=== PATIENT | male | born 1985 ===

== ENCOUNTER 2022-10-10 09:00 | Outpatient (RCR) | payer OTHER, SELFPAY | END 2022-10-10 11:10 | disposition home or self-care (01) | PROVIDERS: Visit Provider Physician Assistant Surgical | DX: Z98.890 Other specified postprocedural states (principal); Z51.89 Encounter for other specified aftercare | CPT/HCPCS: 97110; 97116; 97140; 97161 ==

== ENCOUNTER 2023-08-10 07:41 | Outpatient (CLI) | payer OTHER, SELFPAY | END 2023-08-10 07:42 | disposition home or self-care (01) | PROVIDERS: PCP Family Medicine; Visit Provider Family Medicine | DX: Z00.00 Encounter for general adult medical examination without abnormal findings (principal); E78.00 Pure hypercholesterolemia, unspecified; F32.A Depression, unspecified; Z13.1 Encounter for screening for diabetes mellitus; Z13.21 Encounter for screening for nutritional disorder; F41.9 Anxiety disorder, unspecified; F90.9 Attention-deficit hyperactivity disorder, unspecified type; R53.83 Other fatigue; E78.1 Pure hyperglyceridemia; G47.10 Hypersomnia, unspecified; E55.9 Vitamin D deficiency, unspecified | CPT/HCPCS: 80061; 82306; 82947 ==

== ENCOUNTER 2024-06-13 09:00 | Outpatient (CLI) | payer BC, SELFPAY ==
--- OUTSIDE RECORDS SUMMARY | 2024-06-16 04:58 | XMS_ITS | Clinical Summary ---
Author Organization [facility] Address [place], [place] [address] Care Team Providers Care Can Filling Room Sweeper Name Role Phone Votel, Ned Grace MD Primary Care Provider + Allergies No known active allergies Medications Medication Sig Dispensed Refills Start Date End Date Status cholecalciferol (VITAMIN D3) 2,000 unit capsule Take 2,000 units by mouth once daily. 08/10/2023 Active methylphenidate (Concerta) 54 mg extended-release tabletIndications:A ttention deficit hyperactivity disorder (ADHD), predominantly inattentive type Take 1 Tablet (54 mg) by mouth once daily. 30 Tablet 06/12/2024 07/12/2024 Active methylphenidate (Concerta) 54 mg extended-release tabletIndications:A ttention deficit hyperactivity disorder (ADHD), predominantly inattentive type Take 1 Tablet (54 mg) by mouth once daily. 30 Tablet 07/12/2024 08/11/2024 Active methylphenidate (Concerta) 54 mg extended-release tabletIndications:A ttention deficit hyperactivity disorder (ADHD), predominantly inattentive type Take 1 Tablet (54 mg) by mouth once daily. 30 Tablet 08/11/2024 Active lamoTRIgine 200 mg tabletIndications:D epression, unspecified depression type Take 1 Tablet (200 mg) by mouth once daily. 30 Tablet 1 06/12/2024 Active sertraline (ZOLOFT) 50 mg tabletIndications:D epression, unspecified depression type Take 1 Tablet (50 mg) by mouth once daily. 30 Tablet 1 06/12/2024 Active methylphenidate (Concerta) 36 mg extended-release tabletIndications:A ttention deficit hyperactivity disorder (ADHD), predominantly inattentive type Take 1 Tablet (36 mg) by mouth once daily. 30 Tablet 04/30/2024 05/30/2024 methylphenidate (Concerta) 36 mg extended-release tabletIndications:A ttention deficit hyperactivity disorder (ADHD), predominantly inattentive type Take 1 Tablet (36 mg) by mouth once daily. 30 Tablet 05/30/2024 06/12/2024 Discontinued( *Medication adjustment) methylphenidate (Concerta) 36 mg extended-release tabletIndications:A ttention deficit hyperactivity disorder (ADHD), predominantly inattentive type Take 1 Tablet (36 mg) by mouth once daily. 30 Tablet 06/29/2024 06/12/2024 Discontinued( *Medication adjustment) lamoTRIgine (LAMICTAL) 200 mg tabletIndications:D epression, unspecified depression type Take 1 Tablet (200 mg) by mouth once daily. 30 Tablet 1 04/30/2024 06/12/2024 Discontinued( Reorder (E-cancel not sent)) sertraline (ZOLOFT) 50 mg tabletIndications:D epression, unspecified depression type Take 1 Tablet (50 mg) by mouth once daily. 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 Anxiety 12/12/2023 Depression 12/12/2023 Resolved Problems Problem Noted Date Diagnosed Date Resolved Date Bipolar depression 12/12/2023 Encounters Date Type Department Care Team Description 06/13/2024 3:30 PM CDT Office Visit [facility] [address] [place] [address] Paola Jaime PsyD, LP Arrived 06/12/2024 8:45 AM CDT Office Visit [facility] [address] [place] [address] Ning Martinez NP Follow Up; Medication Management (feeling, Good) 06/12/2024 Travel 04/30/2024 8:45 AM CDT Office Visit [facility] [address] [place] [address] Ning Martinez NP Follow Up; Medication Management 04/30/2024 Travel 04/02/2024 8:45 AM CDT Office Visit [facility] [address] [place] [address] Ning Martinez NP Medication Management (Things are good, nothing new, had a great weekend) 04/02/2024 Telephone [facility] [address] [place] [facility] [address] Ning Martinez NP NIA (/[employer] Sight results) 04/02/2024 Travel 03/27/2024 9:45 AM CDT Office Visit [facility] [address] [address] Ning Martinez NP Medication Management (Things are going all right) 03/27/2024 Travel from Last 3 Months Immunizations Name Administration Dates Next Due COVID-19 Vaccine Spikevax (M oderna 50mcg/0.5mL) 12YO+ 2255-7423 Formula PF 10/10/2023 Influenza, IIV4 10/10/2023,11/12/2021,02/02/2021 Tdap 03/30/2022 Family History Medical History Relation Name Comments Diabetes Father Good Health Mother Diabetes Paternal Grandfather Relation Name Status Comments Father Alive Mother Alive Paternal Grandfather Social History Tobacco Use Types Packs/Day Years Used Date Smoking Tobacco: Never Smokeless Tobacco: Never Tobacco Cessation:Counseling Given: Not Answered Comments:light smoker during college Alcohol Use Standard Drinks/Week Comments Not Currently 0 (1 standard drink = 0.6 oz pur e alcohol) PHQ-2 Answer Date Recorded PHQ-2 TOTAL SCORE 2 06/12/2024 Social Connections Answer Date Recorded Frequency of Communication with Friends and Fami ly Not on file 03/30/2022 Education Answer Date Recorded What is the highest level of school you have completed or the highest degree you have received? Master's degree (e.g., MA, MS, Prosper, MEd, FIELD FOREMAN, KARTIK) 03/30/2022 Sex and Gender Information Value Date Recorded Sex Assigned at Not on file Gender Identity Not on file Sexual Orientation Not on file Obstetrics History Last Filed Vital Signs Vital Sign Reading Time Taken Comments Blood Pressure 116/72 06/12/2024 8:58 AM CDT Pulse 69 06/12/2024 8:58 AM CDT Temperature 37.1 ??C (98.8 ??F) 08/02/2022 4:44 PM CD T Respiratory Rate 18 08/02/2022 4:44 PM CDT Oxygen Saturation 98% 08/02/2022 4:44 PM CDT Inhaled Oxygen Concentration - - Weight 87.4 kg (192 lb 11.2 oz) 06/12/2024 8:58 AM CDT Height 182.9 cm (6') 11/28/2022 8:53 AM MIXING 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 Body Mass Index 26.13 11/28/2022 8:53 AM MIXING 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 Plan of Treatment Upcoming Encounters Date Type Department Care Team (Late st Contact Info) Description 07/09/2024 10:15 AM CDT Office Visit [facility] [address] [place] [address] Ning Martinez NP [address] [place] [address] Health Maintenance Due Date Last Done Comments HIV for age 15-65 1999 Hepatitis C screening for age 18-79 2002 BMI (ht and wt on same day) for age 18+ 11/28/2023 11/28/2022, 03/30/2022 Influenza for age 9-49 07/28/2024 , 11/12/2021, 02/02/2021 Depression screening for age 12+ 06/13/2025 06/13/2024, 06/12/2024, 04/30/2024, Additional history exists Lipids for age 35-44 03/30/2027 03/30/2022 Tetanus booster 03/30/2032 03/30/2022 Tdap Completed 03/30/2022 COVID-19 vaccine series Completed 10/10/20 23, 11/12/2021, 03/22/2021, Additional history exists Pneumococcal series for age 6-64 Aged Out No longer eligible based on patient's age to complete this topic Procedures Procedure Name Priority Date/Time Associated Diagnosis Comments COMPLIANCE DRUG ANALYSIS Patient wait 04/02/2024 9:34 AM CDT Attention deficit hyperactivity disorder (ADHD), predominantly inattentive type LIPID PANEL W REFLEX MEASURED LDL Routine 03/30/2022 2:34 PM CDT Lipid screening from Last 3 Months or Most Recently Relevant to Health Maintenance Results * COMPLIANCE DRUG ANALYSIS (04/02/2024 9:34 AM CDT) 6-MONOACETYL MORPHINE NEG NEG ng/mL 04/05/2024 11:54 AM [facility] AMPHETAMINE URINE NEG <=500 ng/mL 04/05/2024 11:54 AM [facility] BARBITURATE URINE NEG <=200 ng/mL 04/05/2024 11:54 AM [facility] BENZODIAZEPINE URINE NEG <=100 ng/mL 04/05/2024 11:54 AM [facility] BUPRENORPHRINE URINE NEG <=5 ng/mL 03/27 11:54 AM [facility] COCAINE METAB URINE NEG <=300 ng/mL 04/05/2024 11:54 AM [facility] ETHYLGLUCURONIDE URINE NEG <=250 ng/mL 04/05/2024 11:54 AM [facility] FENTANYL URINE NEG <=4 ng/mL 04/05/2024 11:54 AM [facility] METHADONE URINE NEG <=300 ng/mL 04/05/2024 11:54 AM [facility] OPIATES URINE NEG <=300 ng/mL 04/05/2024 11:54 AM [facility] OXYCODONE URINE NEG <=100 ng/mL 04/05/2024 11:54 AM [facility] PROPOXYPHENE URINE NEG <=300 ng/mL 04/05/2024 11:54 AM [facility] THC 50 URINE NEG <=50 ng/mL 04/05/2024 11:54 AM [facility] TRAMADOL NEG <=200 ng/mL 04/05/2024 11:54 AM [facility] PH URINE 6.7 5.0 - 7.0 04/05/2024 11:54 AM CDT [facility] CREAT UR 170 >=20 mg/dL 04/05/2024 11:54 AM T [facility] MASS SPECTROMETRY URINE See Below 04/05/2024 11:54 AM CDT [facility] Comment:Lamotrigine present. Urine URINE SPECIMEN / Unknown Non-Blood / Unknown 04/02/2024 9:34 AM CDT 04/02/2024 9:34 AM CDT [facility] - 04/05/2024 11:54 AM CDT Current Outpatient Medications: cholecalciferol (VITAMIN D3) 2,000 unit capsule, Take 2,000 units by mouth once daily. lamoTRIgine (LAMICTAL) 200 mg tablet, Take 1 Tablet (200 mg) by mouth once daily. sertraline (ZOLOFT) 50 mg tablet, Take 1 Tablet (50 mg) by mouth once daily. No current facility-administered medications for this visit. As of 04/02/2024 Release to patient->Immediate Ning Martinez NP URINE [facility] [address] [facility] [address] [place] [address], * (ABNORMAL) LIPID PANEL W REFLEX MEASURED LDL (03/30/2022 2:34 PM CDT) CHOLESTEROL,TOTAL 231(H) 100 - 199 mg/dL 03/30/2022 10:46 PM CDT [facility] [employer] [facility] TRAL LABORAT[facility] TRIGLYCERIDES 309(H) <150 mg/dL 03/30/2022 10:46 PM CDT [facility] HDL CHOLESTEROL 45 >40 mg/dL 10:46 PM CDT [facility] NON-HDL CHOLESTEROL 186(H) <145 mg/dl 03/30/2022 10:46 PM CDT [facility] CHOL/HDL RATIO 5.13(H) <4.50 03/30/2022 10:46 PM CDT [facility] LDL CHOLESTEROL 124 <=130 mg/dL 03/30/2022 10:46 PM CDT [facility] VLDL CHOLESTEROL 62(H) <=30 mg/dL 03/30/2022 10:46 PM CDT [facility] TRAL LABORATORY PROVIDER ORDERED STATUS RANDOM 03/30/2022 10:46 PM CDT [facility] TR[facility] Blood BLOOD SPECIMEN / Unknown Venipuncture / Unknown 03/30/2022 2:34 PM CDT 03/30/2022 2:34 PM CDT Ned Valencia MD [facility] [address] [place] [address], from Last 3 Months or Most Recently Relevant to Health Maintenance Care Teams Can Filling Room Sweeper Relationship Specialty Start Date End Date SebastientelNed MD [address] [place] [address] PCP - General Family Practice 03/30/22
== END 2024-06-13 09:01 | disposition home or self-care (01) ==
LOC: NFLDREF 06-16 04:56
PROVIDERS: PCP Family Medicine; Referring Provider Family Medicine; Visit Provider Family Medicine
DX: E78.5 Hyperlipidemia, unspecified (principal); Z13.1 Encounter for screening for diabetes mellitus
CPT/HCPCS: 80061; 82565; 82947; 84520

== ENCOUNTER 2024-07-15 19:32 | Outpatient (CLI) | payer BC, SELFPAY ==
--- OUTSIDE RECORDS SUMMARY | 2024-07-15 19:34 | XMS_ITS | Clinical Summary ---
Author Organization [facility] Address [place], [place] [address] Care Team Providers Care Financial Services Agent Name Role Phone Miguel Ángel Chapman MD Primary Care Provider [phone] Allergies No known active allergies Medications Medication [...] mg) by mouth once daily. 30 Tablet 3 07/10/2024 Active sertraline (ZOLOFT) 50 mg tabletIndications:D epression, unspecified depression type Take 1 Tablet (50 mg) by mouth once daily. 30 Tablet 3 07/10/2024 Active methylphenidate (Concerta) 54 mg extended-release tabletIndications:A ttention deficit hyperactivity disorder (ADHD), predominantly inattentive type Take 1 Tablet (54 mg) by mouth once daily. 30 Tablet 09/10/2024 10/10/2024 Active methylphenidate (Concerta) 54 mg extended-release tabletIndications:A ttention deficit hyperactivity disorder (ADHD), predominantly inattentive type Take 1 Tablet (54 mg) by mouth once daily. 30 Tablet 06/12/2024 07/12/2024 lamoTRIgine 200 mg tabletIndications:D epression, unspecified depression type Take 1 Tablet (200 mg) by mouth once daily. 30 Tablet 1 06/12/2024 07/10/2024 Discontinued( Reorder (E-cancel not sent)) sertraline (ZOLOFT) 50 mg tabletIndications:D epression, unspecified depression type Take 1 Tablet (50 mg) by mouth once daily. 30 Tablet 1 06/12/2024 07/10/2024 Discontinued( Reorder (E-cancel not sent)) Active Problems Problem Noted Date Diagnosed Date Attention deficit hyperactiv ity disorder (ADHD), predominantly inattentive type 03/27/2024 Anxiety 12/12/2023 Depression 12/12/2023 Resolved Problems Problem Noted Date Diagnosed Date Resolved Date Bipolar depression 12/12/2023 Encounters Date Type Department Care Team Description 07/09/2024 10:15 AM CDT Office Visit [facility] [address] [place] [address] Ning Martinez NP Medication Management (Things are going good) 07/09/2024 Travel 06/13/2024 3:30 PM CDT Office Visit [facility] [address] [place] [address] Paola Jaime PsyD, LP Psychological Testing (ASD Evaluation Intake); Mental Health Intake 06/12/2024 8:45 AM CDT Office Visit [facility] [address] [place] [address] Ning Martinez NP Follow Up; Medication Management (feeling, Good) 06/12/2024 Travel 04/30/2024 8:45 AM CDT Office Visit [facility] [address] [place] [address] Ning Martinez NP Follow Up; Medication Management 04/30/2024 Travel from Last 3 Months Immunizations Name Administration Dates Next Due COVID-19 Vaccine Spikevax (M oderna 50mcg/0.5mL) 12YO+ 7344-3601 Formula PF 10/10/2023 Influenza, IIV4 10/10/2023,11/12/2021,02/02/2021 Tdap [...] PHQ-2 Answer Date Recorded PHQ-2 TOTAL SCORE 0 07/09/2024 Social Connections Answer Date Recorded Frequency of Communication with Friends and Fami ly Not on file 03/30/2022 Education Answer Date Recorded What is the highest level of school you have completed or the highest degree you have received? Master's degree (e.g., MA, MS, Prosper, MEd, CLOTH WINDER, KARTIK) 03/30/2022 Sex and Gender Information Value Date Recorded Sex Assigned at Not on file Gender Identity Not on file Sexual Orientation Not on file Obstetrics History Last Filed Vital Signs Vital Sign Reading Time Taken Comments Blood Pressure 114/84 07/09/2024 10:28 AM CDT Pulse 64 07/09/2024 10:28 AM CDT Temperature 37.1 ??C (98.8 ??F) 08/02/2022 4:44 PM CD T Respiratory Rate 18 08/02/2022 4:44 PM CDT Oxygen Saturation 98% 08/02/2022 4:44 PM CDT Inhaled Oxygen Concentration - - Weight 85.5 kg (188 lb 9.6 oz) 07/09/2024 10:28 AM CDT Height 182.9 cm (6') 11/28/2022 8:53 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 Body Mass Index 25.58 11/28/2022 8:53 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 Plan of Treatment Upcoming Encounters Date Type Department Care Team (Late st Contact Info) Description 07/17/2024 3:45 PM CDT Office Visit [facility] [address] [place] [id number] Paola Jaime, Parul, LP [address] [place] [address] 10/14/2024 8:45 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 [facility] [address] [facility] [address] Ning Martinez NP [address] [place] [address] Health Maintenance Due Date Last Done Comments HIV for age 15-65 1999 Hepatitis C screening for age 18-79 2002 BMI (ht and wt on same day) for age 18+ 11/28/2023 11/28/2022, 03/30/2022 Influenza for age 9-49 07/28/2024 , 11/12/2021, 02/02/2021 Depression screening for age 12+ 07/09/2025 07/09/2024, 06/13/2024, 06/12/2024, Additional history exists Lipids for age 35-44 03/30/2027 03/30/2022 Tetanus booster 03/30/2032 03/30/2022 Tdap Completed 03/30/2022 COVID-19 vaccine series Completed 10/10/20 23, 11/12/2021, 03/22/2021, Additional history exists Pneumococcal series for age 6-64 Aged Out No longer eligible based on patient's age to complete this topic Procedures Procedure Name Priority Date/Time Associated Diagnosis Comments LIPID PANEL W REFLEX MEASURED LDL Routine 03/30/2022 2:34 PM CDT Lipid screening from Last 3 Months or Most Recently Relevant to Health Maintenance Results * (ABNORMAL) LIPID PANEL W REFLEX MEASURED LDL (03/30/2022 2:34 PM CDT) CHOLESTEROL,TOTAL 231(H) 100 - 199 mg/dL 03/30/2022 10:46 PM CDT [facility] TRIGLYCERIDES 309(H) <150 mg/dL 03/30/2022 10:46 PM CDT [facility] HDL CHOLESTEROL 45 >40 mg/dL 10:46 PM CDT [facility] TRAL LABORATORY NON-HDL CHOLESTEROL 186(H) <145 mg/dl 03/30/2022 10:46 PM CDT [facility] TR[facility] LABORATORY CHOL/HDL RATIO 5.13(H) <4.50 03/30/2022 10:46 PM CDT [facility] TR[facility] LAB[facility]AT[facility] LDL CHOLESTEROL 124 <=130 mg/dL 03/30/2022 10:46 PM CDT [facility] TRAL LABORATORY VLDL CHOLESTEROL 62(H) <=30 mg/dL 03/30/2022 10:46 PM CDT [facility] TRAL LABORATORY PROVIDER ORDERED STATUS RANDOM 03/30/2022 10:46 PM CDT [facility] TRAL LABORATORY Blood BLOOD SPECIMEN / Unknown Venipuncture / Unknown 03/30/2022 2:34 PM CDT 03/30/2022 2:34 PM CDT Ned Valencia MD [facility] [address] [place] [address], from Last 3 Months or Most Recently Relevant to Health Maintenance Care Teams Financial Services Agent Relationship Specialty Start Date End Date Miguel Ángel Chapman MD [address] [place] [id number] PCP - General Family Practice 07/09/24
--- NOTE | 2024-07-30 10:36 | W.PM.SLEEP ---
Sleep Study Details Details Interpreting Provider: Ori Date of Sleep Study: 07/15/24 Sleep Study Details: STUDY TYPE:? Home unattended ? BMI:? 26 ORDERING PROVIDER:Teetee Rehman INDICATION:? Concern about sleep apnea ? SLEEP SUMMARY:? 470 minutes monitor time RESPIRATORY SUMMARY:? AHI 5.9, supine 12.5, left lateral 5.4, prone 2.7, right lateral 3.3 Low oxygen 84 0.5% of study oxygen below 90% Snoring 80.2% PERIODIC LIMB MOVEMENTS OF SLEEP:? Not record CARDIAC:? Range 58-102, mean 68.7 IMPRESSION:? Mild obstructive sleep apnea with supine position dependency RECOMMENDATION: Treatment options include CPAP, dental appliance and/or airway expansion surgery
== END 2024-07-15 19:33 | disposition home or self-care (01) ==
LOC: SLEEP 19:32
PROVIDERS: PCP Family Medicine; Visit Provider Otolaryngology
DX: G47.33 Obstructive sleep apnea (adult) (pediatric) (principal)
CPT/HCPCS: 95806

== ENCOUNTER 2024-12-02 13:07 | Outpatient (CLI) | payer BC, SELFPAY | END 2024-12-02 13:08 | disposition home or self-care (01) | LOC: US 13:08 | PROVIDERS: PCP Family Medicine; Visit Provider Surgery | DX: I83.813 Varicose veins of bilateral lower extremities with pain (principal) | CPT/HCPCS: 93970 ==

== ENCOUNTER 2025-03-31 14:34 | Outpatient (CLI) | payer BC, SELFPAY | END 2025-03-31 14:35 | disposition home or self-care (01) | LOC: US 14:35 | PROVIDERS: PCP Family Medicine; Visit Provider Surgery | DX: I83.813 Varicose veins of bilateral lower extremities with pain (principal); I87.2 Venous insufficiency (chronic) (peripheral); I86.8 Varicose veins of other specified sites | CPT/HCPCS: 93970 ==

== ENCOUNTER 2025-06-12 09:06 | Outpatient (CLI) | payer BC, SELFPAY ==
--- NOTE | 2025-06-12 09:15 | MR_ITS ---
[address] [address] Phone:?[phone] Fax:?[phone] Referring Physician Information: Sonia Sal [address] [facility] [address] Phone:?[phone] Fax:?[phone] Patient:Yuliana Lyons D.O.B:?1985 Sex:?Male Phone:?[phone] [facility] MRN:?[id number] Exam Date:?06/12/2025 EXAM: MR PROSTATE WITHOUT AND WITH CONTRAST CLINICAL INFORMATION: Hematospermia. COMPARISON: None. TECHNICAL INFORMATION: Examination was performed on a 1.5T magnet. High- resolution T1 axial, T2 axial, T2 FSE sagittal and T2 FSE coronal images were obtained through the prostate gland and seminal vesicles. Diffusion images were obtained in the axial plane. 20 mL of Dotarem were injected with dynamic enhanced images of the prostate gland in the axial plane. T1 fat saturation sagittal and coronal images were obtained postinjection. Images were analyzed with 3-D postprocessing online under concurrent physician supervision using a separate AdoTube workstation. Amount of IV contrast discarded is 0 mL. INTERPRETATION: The prostate gland measures 4.0 x 3.4 x 4.4 cm (TV x AP x SI) for an estimated volume of 26 cc. Transitional and central zones: There is minimal glandular and stromal hyperplasia with well encapsulated BPH nodules (PI-RADS 2). No focal CZ/TZ lesions concerning for clinically significant adenocarcinoma. Peripheral zones: No focal PZ lesions concerning for clinically significant adenocarcinoma (PI-RADS 1). Pelvis: No fercho transcapsular disease. Neurovascular bundles and seminal vesicles appear intact. No pelvic lymphadenopathy or evident bone marrow disease. CONCLUSION: * Nonenlarged prostate gland with minimal BPH. * No stigmata of prostatitis. * No suspicious (PI-RADS 3, 4, or 5) lesions identified. * No definite explanation for the patient's hematospermia. PI-RADS Assessment Categories: Score 1 = very low; clinically significant disease highly unlikely Score 2 = low; clinically significant disease is unlikely Score 3 = intermediate; clinically significant disease is equivocal Score 4 = high; clinically significant disease is likely Score 5 = very high; clinically significant disease is highly likely Electronically signed on 06/12/2025 4:03:00 PM by Steven Mora M.D.
--- NOTE | 2025-06-12 10:45 | CRLHL7_ITS ---
For Patients: As a result of the Century Cures Act, medical imaging exams and procedure reports are released immediately into your electronic medical record. You may view this report before your referring provider. If you have questions, please contact your health care provider. CLINICAL HISTORY: Microscopic hematuria COMPARISON: none TECHNIQUE: Samano scale and color Doppler images were acquired of the kidneys and urinary bladder. FINDINGS: Sonographic images reveal a symmetric appearance of the kidneys. There is no evidence of hydronephrosis, mass or calculus. The right kidney measures 11.5cm in length and the left kidney measures 11.6cm in length. The renal cortex appears of normal thickness. The urinary bladder appears normal. Color Doppler images reveal a normal appearance of both ureteral jets. There is no evidence of bladder calculi or diverticula. Bladder volume 23 cc. Postvoid bladder volume 5 cc. IMPRESSION: Normal renal ultrasound. Dictated by Haseeb Rodriguez MD @ 06/12/2025 11:44:06 AM (Electronically Signed)
== END 2025-06-12 09:07 | disposition home or self-care (01) ==
LOC: MRI 09:07
PROVIDERS: PCP Family Medicine; Visit Provider Physician Assistant Surgical
DX: R36.1 Hematospermia (principal); R31.29 Other microscopic hematuria
CPT/HCPCS: 72197; 76770; A9575

== ENCOUNTER 2025-06-24 08:03 | Outpatient (CLI) | payer BC, SELFPAY | END 2025-06-24 08:04 | disposition home or self-care (01) | LOC: NFLDREF 06-26 10:24 | PROVIDERS: PCP Family Medicine; Referring Provider Family Medicine; Visit Provider Family Medicine | DX: E78.5 Hyperlipidemia, unspecified (principal); R79.89 Other specified abnormal findings of blood chemistry; L64.9 Androgenic alopecia, unspecified; R53.83 Other fatigue | CPT/HCPCS: 80053; 80061; 82306; 84443 ==

== ENCOUNTER 2025-06-30 15:48 | Emergency (ER) | payer BC, SELFPAY ==
[2025-06-30 15:51] VITALS: BP 110/76; PULSE 117; RESP 16; TEMP 36; O2SAT 97; BMI 25.8
--- OUTSIDE RECORDS SUMMARY | 2025-06-30 15:51 | XMS_ITS | Clinical Summary ---
Author Organization [facility] Address [address] [place] [id number] Care Team Providers Care Professional Services Manager Name Role Phone Miguel Ángel Chapman MD Primary Care Provider [phone] Allergies No known active allergies Medications cholecalciferol (VITAMIN D3) 2,000 unit capsule Take 2,000 units by mouth once daily. 3 Active minoxidiL (LONITEN) 2.5 mg tab Take 2.5 mg by mouth once daily. 4 Active trimethoprim-sulf amethoxazole 160-800 mg tab Take 1 Tablet by mouth two times daily. 5 Active sertraline (ZOLOFT) 50 mg tabletIndications :Depression, unspecified depression type,Anxiety Take 1 Tablet (50 mg) by mouth once daily. 30 Tablet 3 5 Active lamoTRIgine 200 mg tabletIndications :Depression, unspecified depression type Take 1 Tablet (200 mg) by mouth once daily. 30 Tablet 1 5 Active sertraline 100 mg tabletIndications :Depression, unspecified depression type,Anxiety Take 1 Tablet (100 mg) by mouth once daily. 30 Tablet 2 5 06/11/20 25 Discontinu ed(*Medica tion adjustment ) lamoTRIgine 200 mg tabletIndications :Depression, unspecified depression type Take 1 Tablet (200 mg) by mouth once daily. 30 Tablet 2 5 06/11/20 25 Discontinu ed(Reorder (E-cancel not sent)) lisdexamfetamine (Vyvanse) 50 mg capsuleIndication s:Attention deficit hyperactivity disorder (ADHD), predominantly inattentive type Take 1 Capsule (50 mg) by mouth once daily. 30 Capsule 5 06/11/20 25 Discontinu ed(*Med ineffectiv e) lisdexamfetamine (Vyvanse) 50 mg capsuleIndication s:Attention deficit hyperactivity disorder (ADHD), predominantly inattentive type Take 1 Capsule (50 mg) by mouth once daily. 30 Capsule 5 06/11/20 25 Discontinu ed(*Med ineffectiv e) lisdexamfetamine (Vyvanse) 50 mg capsuleIndication s:Attention deficit hyperactivity disorder (ADHD), predominantly inattentive type Take 1 Capsule (50 mg) by mouth once daily. 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 Anxiety 12/12/2023 Depression 12/12/2023 Resolved Problems Problem Noted Date Diagnosed Date Resolved Date Bipolar depression 12/12/2023 4 Encounters Date Type Department Care Team Description 06/11/2025 10:45 AM CDT Office Visit [facility] [address] [place] [address] Ning Martinez, KIRA Follow Up; Medication Management 06/11/2025 Travel 05/12/2025 8:45 AM CDT Office Visit [facility] [address] [place] [address] Ning Martinez, KIRA Follow Up; Medication Management 05/12/2025 Travel 03/31/2025 2:30 PM CDT Orders Only [facility] [address] [place] [address] 3 scans: (3-Ord) US VENOUS INSUFFICIENCY LOWER EXTREMITY BILATERAL ([id number]) 03/31/2025 Travel from Last 3 Months Immunizations Immunization Administration Dates Next Due COVID-19 VACCINE SPIKEVAX (M ODERNA 50MCG/0.5ML) 12YO+ PFS 10/10/2023 Influenza, IIV4 10/10/2023,11/12/2021,02/02/2021 Tdap 03/30/2022 Family [...] PHQ-2 Answer Date Recorded PHQ-2 TOTAL SCORE 1 06/11/2025 Social Connections Answer Date Recorded Frequency of Communication with Friends and Fami ly Not on file 03/30/2022 Education Answer Date Recorded What is the highest level of school you have completed or the highest degree you have received? 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 Not on file Not on file Obstetrics History Last Filed Vital Signs Vital Sign Reading Time Taken Comments Blood Pressure 125/75 06/11/2025 10:53 AM CDT Pulse 80 06/11/2025 10:53 AM CDT Temperature 37.1 C (98.8 F) 08/02/2022 4:44 PM CDT Respiratory Rate 18 08/02/2022 4:44 PM CDT Oxygen Saturation 98% 08/02/2022 4:44 PM CDT Inhaled Oxygen Concentration - - Weight 88 kg (194 lb) 06/11/2025 10:53 AM CDT Height 182.9 cm (6') 11/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 Body Mass Index 26.31 11/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 Plan of Treatment Upcoming Encounters Date Type Department Care Team (Late st Contact Info) Description 09/08/2025 9:15 AM CDT Office Visit [facility] [address] [place] [address] Ning Martinez NP [address] [place] [address] Health Maintenance Due Date Last Done Comments HIV for age 15-65 1999 Hepatitis C screening for age 18-79 2002 Hepatitis B series for 19+ (1 of 3 - 19+ 3-dose series) 2003 BMI (ht and wt on same day) for age 18+ 11/28/2023 11/28/2022, 03/30/2022 COVID-19 vaccine series ( season) 2024 10/10/2023, 11/12/2021, 03/22/2021, Additional history exists Influenza Vaccine (#1) 2025 , 11/12/2021, 02/02/2021 Depression screening for age 12+ 06/11/2026 06/11/2025, 05/12/2025, 03/04/2025, Additional history exists Lipids for age 35-44 03/30/2027 03/30/2022 Tetanus booster 03/30/2032 03/30/2022 Pneumococcal series for age 6-49 Aged Out No longer eligible based on patient's age to complete this topic Procedures Procedure Name Priority Date/Time Associated Diagnosis Comments US VENOUS INSUFFICIENCY LOWER EXTREMITY BILATERAL Routine 03/31/2025 5:40 PM CDT Varicose veins of both lower extremities with pain LIPID PANEL W REFLEX MEASURED LDL Routine 03/30/2022 2:34 PM CDT Lipid screening from Last 3 Months or Most Recently Relevant to Health Maintenance Results * US VENOUS INSUFFICIENCY LOWER EXTREMITY BILATERAL (03/31/2025 5:40 PM CDT) Anatomical Region Laterality Modality LEGS Ultrasound 03/31/2025 1:40 PM CDT Narrative 04/01/2025 9:54 AM CDT VASCULAR ULTRASOUND REPORT ISRAEL LYONS : 1985 Study Date: 03/31/2025 1:40:02 PM Age: 39 years Tech: THUY Gender: M Referring MD: DESTINY FERNANDEZ Site: [facility] Study performed: Duplex US venous insufficiency, (bilateral). Indication for study: LE pain/edema Study Quality: Good TECHNIQUE: Lower/upper extremity veins were examined with duplex ultrasound, color-flow and spectral Doppler per exam protocol. Vein compressibility by transducer pressure was used to evaluate presence/absence of DVT/SVT. Venous flow and competence was evaluated by flow augmentation maneuvers per exam protocol. Insufficiency studies were performed with the patient in upright position, with vein diameters measured in mm, and reflux. IMPRESSION: 1. No evidence of deep vein thrombosis in the right and left lower extremity. 2. Deep vein insufficiency noted in the right common femoral, profunda femoral, femoral and popliteal veins. 3. Deep vein insufficiency noted in the left common femoral and femoral veins. 4. Superficial venous insufficiency was noted in the right sapheno-femoral junction and greater saphenous vein at proximal thigh, mid thigh, knee, upper calf, mid calf and lower calf. 5. Superficial venous insufficiency was noted in the right sapheno-popliteal junction and small saphenous vein at proximal calf, mid calf and distal calf. 6. Superficial venous insufficiency was noted in the left sapheno-femoral junction and greater saphenous vein at knee, upper calf and lower calf. 7. Incompetent varicose and/or generator assembler veins as listed below. COMPARISON: Compared to prior study 12-02-2024, increased LE superficial venous reflux bilaterally. FINDINGS: Right Lower Extremity: No evidence of DVT. Varicose vein at medial distal thigh, 5.1 mm diameter, 0.5 sec reflux. Varicose vein at medial proximal calf , 3.4 mm diameter, 0.7 sec reflux. Left Lower Extremity: No evidence of DVT. Varicose vein at medial mid calf, 3.4 mm diameter, 6.1 sec reflux. MEASUREMENTS: + +--------+----+--------+------+ RIGHT Compress SVT Diameter Reflux (mm) (secs) + +--------+----+--------+------+ SFJ yes None 7.0 1.0 + +--------+----+--------+------+ GSV THIGH PRX yes None 5.5 2.3 + +--------+----+--------+------+ GSV THIGH MID yes None 4.8 0.9 + +--------+----+--------+------+ GSV THIGH DST yes None 3.1 0.0 + +--------+----+--------+------+ GSV KNEE yes None 5.2 1.2 + +--------+----+--------+------+ GSV CALF UPPER yes None 4.0 0.5 + +--------+----+--------+------+ GSV CALF MID yes None 4.3 0.8 + +--------+----+--------+------+ GSV CALF LOW yes None 3.0 0.6 + +--------+----+--------+------+ SSV KNEE/SPJ yes None 3.0 5.1 + +--------+----+--------+------+ SSV CALF PRX yes None 2.5 1.2 + +--------+----+--------+------+ SSV CALF MID yes None 3.3 3.6 + +--------+----+--------+------+ SSV CALF DST yes None 4.4 0.9 + +--------+----+--------+------+ + +--------+----+ +------+ LEFT Compress SVT Diameter (mm) Reflux (secs) + +--------+----+ +------+ SFJ yes None 9.3 0.6 + +--------+----+ +------+ GSV THIGH PRX yes None 5.8 0.0 + +--------+----+ +------+ GSV THIGH MID yes None 6.2 0.0 + +--------+----+ +------+ GSV THIGH DST yes None 5.4 0.0 + +--------+----+ +------+ GSV KNEE yes None 5.8 1.8 + +--------+----+ +------+ GSV CALF UPPER yes None 5.0 1.9 + +--------+----+ +------+ GSV CALF MID yes None 3.2 0.0 + +--------+----+ +------+ GSV CALF LOW yes None 2.9 0.7 + +--------+----+ +------+ SSV KNEE/SPJ yes None 3.2 0.0 + +--------+----+ +------+ SSV CALF PRX yes None 2.5 0.0 + +--------+----+ +------+ SSV CALF MID yes None 2.6 0.0 + +--------+----+ +------+ SSV CALF DST yes None 3.8 0.0 + +--------+----+ +------+ can't evaluate Varicose Veins + + + + RIGHT Location Diameter (mm) Reflux (secs) + + + + medial distal thigh 5.1 0.5 + + + + medial proximal calf 3.4 0.7 + + + + + + + + LEFT Location Diameter (mm) Reflux (secs) + + + + medial mid calf 3.4 6.1 + + + + DEEP SYSTEM +----+--------+-----+ +--------+----+ + RIGHT RIGHT RIGHT LEFT LEFT LEFT Compress DVT Reflux (secs) Compress DVT Reflux (secs) +----+--------+-----+ +--------+----+ + CFV yes None 1.4 yes None 1.1 +----+--------+-----+ +--------+----+ + PFV yes None 1.4 yes None 0.0 +----+--------+-----+ +--------+----+ + FV yes None 2.3 yes None 1.5 +----+--------+-----+ +--------+----+ + POPV yes None 2.4 yes None 0.0 +----+--------+-----+ +--------+----+ + can't evaluate Abram Arshad MD. Electronically signed on 04/01/2025 9:54:43 AM This study was performed and interpreted by a service accredited by the Intersocietal Accreditation Commission (IAC/Vascular), [email or web address] Report generated by [employer]. Final Procedure Note Abram Arshad MD - 04/01/2025 VASCULAR ULTRASOUND REPORT ISRAEL LYONS : 1985 Study Date: 03/31/2025 1:40:02 PM Age: 39 years Tech: THUY Gender: M Referring MD: DESTINY FERNANDEZ Site: [facility] Study performed: Duplex US venous insufficiency, (bilateral). Indication for study: LE pain/edema Study Quality: Good TECHNIQUE: Lower/upper extremity veins were examined with duplex ultrasound,color-flow and spectral Doppler per exam protocol. Vein compressibility bytransducer pressure was used to evaluate presence/absence of DVT/SVT.Venous flow and competence was evaluated by flow augmentation maneuversper exam protocol. Insufficiency studies were performed with the patientin upright position, with vein diameters measured in mm, and reflux. IMPRESSION: 1. No evidence of deep vein thrombosis in the right and left lowerextremity. 2. Deep vein insufficiency noted in the right common femoral, profundafemoral, femoral and popliteal veins. 3. Deep vein insufficiency noted in the left common femoral and femoralveins. 4. Superficial venous insufficiency was noted in the rightsapheno-femoral junction and greater saphenous vein at proximal thigh, midthigh, knee, upper calf, mid calf and lower calf. 5. Superficial venous insufficiency was noted in the rightsapheno-popliteal junction and small saphenous vein at proximal calf, midcalf and distal calf. 6. Superficial venous insufficiency was noted in the left sapheno- femoraljunction and greater saphenous vein at knee, upper calf and lower calf. 7. Incompetent varicose and/or generator assembler veins as listed below. COMPARISON: Compared to prior study 12-02-2024, increased LE superficial venous refluxbilaterally. FINDINGS: Right Lower Extremity: No evidence of DVT. Varicose vein at medial distal thigh, 5.1 mm diameter,0.5 sec reflux. Varicose vein at medial proximal calf , 3.4 mm diameter,0.7 sec reflux. Left Lower Extremity: No evidence of DVT. Varicose vein at medial mid calf, 3.4 mm diameter, 6.1sec reflux. MEASUREMENTS: + +--------+----+--------+------+ RIGHT Compress SVT Diameter Reflux (mm) (secs) + +--------+----+--------+------+ SFJ yes None 7.0 1.0 + +--------+----+--------+------+ GSV THIGH PRX yes None 5.5 2.3 + +--------+----+--------+------+ GSV THIGH MID yes None 4.8 0.9 + +--------+----+--------+------+ GSV THIGH DST yes None 3.1 0.0 + +--------+----+--------+------+ GSV KNEE yes None 5.2 1.2 + +--------+----+--------+------+ GSV CALF UPPER yes None 4.0 0.5 + +--------+----+--------+------+ GSV CALF MID yes None 4.3 0.8 + +--------+----+--------+------+ GSV CALF LOW yes None 3.0 0.6 + +--------+----+--------+------+ SSV KNEE/SPJ yes None 3.0 5.1 + +--------+----+--------+------+ SSV CALF PRX yes None 2.5 1.2 + +--------+----+--------+------+ SSV CALF MID yes None 3.3 3.6 + +--------+----+--------+------+ SSV CALF DST yes None 4.4 0.9 + +--------+----+--------+------+ + +--------+----+ +------+ LEFT Compress SVT Diameter (mm) Reflux (secs) + +--------+----+ +------+ SFJ yes None 9.3 0.6 + +--------+----+ +------+ GSV THIGH PRX yes None 5.8 0.0 + +--------+----+ +------+ GSV THIGH MID yes None 6.2 0.0 + +--------+----+ +------+ GSV THIGH DST yes None 5.4 0.0 + +--------+----+ +------+ GSV KNEE yes None 5.8 1.8 + +--------+----+ +------+ GSV CALF UPPER yes None 5.0 1.9 + +--------+----+ +------+ GSV CALF MID yes None 3.2 0.0 + +--------+----+ +------+ GSV CALF LOW yes None 2.9 0.7 + +--------+----+ +------+ SSV KNEE/SPJ yes None 3.2 0.0 + +--------+----+ +------+ SSV CALF PRX yes None 2.5 0.0 + +--------+----+ +------+ SSV CALF MID yes None 2.6 0.0 + +--------+----+ +------+ SSV CALF DST yes None 3.8 0.0 + +--------+----+ +------+ can't evaluate Varicose Veins + + + + RIGHT Location Diameter (mm) Reflux (secs) + + + + medial distal thigh 5.1 0.5 + + + + medial proximal calf 3.4 0.7 + + + + + + + + LEFT Location Diameter (mm) Reflux (secs) + + + + medial mid calf 3.4 6.1 + + + + DEEP SYSTEM +----+--------+-----+ +--------+----+ + RIGHT RIGHT RIGHT LEFT LEFT LEFT Compress DVT Reflux (secs) Compress DVT Reflux (secs) +----+--------+-----+ +--------+----+ + CFV yes None 1.4 yes None 1.1 +----+--------+-----+ +--------+----+ + PFV yes None 1.4 yes None 0.0 +----+--------+-----+ +--------+----+ + FV yes None 2.3 yes None 1.5 +----+--------+-----+ +--------+----+ + POPV yes None 2.4 yes None 0.0 +----+--------+-----+ +--------+----+ + can't evaluate Abram Arshad MD. Electronically signed on 04/01/2025 9:54:43 AM This study was performed and interpreted by a service accredited by theIntersocietal Accreditation Commission (IAC/Vascular),[email or web address] Report generated by [employer]. Final us Destiny Fernandez MD US Final Re sult * (ABNORMAL) LIPID PANEL W REFLEX MEASURED LDL (03/30/2022 2:34 PM CDT) CHOLESTEROL,TOTAL 231(H) 100 - 199 mg/dL 03/30/2022 10:46 PM CDT [facility] [employer] [facility] TRIGLYCERIDES 309(H) <150 mg/dL 03/30/2022 10:46 PM CDT [facility] HDL CHOLESTEROL 45 >40 mg/dL 10:46 PM CDT [facility] NON-HDL CHOLESTEROL 186(H) <145 mg/dl 03/30/2022 10:46 PM CDT [facility] CHOL/HDL RATIO 5.13(H) <4.50 03/30/2022 10:46 PM CDT [facility] LDL CHOLESTEROL 124 <=130 mg/dL 03/30/2022 10:46 PM CDT [facility] VLDL CHOLESTEROL 62(H) <=30 mg/dL 03/30/2022 10:46 PM CDT [facility] PROVIDER ORDERED STATUS RANDOM 03/30/2022 10:46 PM CDT [facility] Blood BLOOD SPECIMEN / Unknown Venipuncture / Unknown 03/30/2022 2:34 PM CDT 03/30/2022 2:34 PM CDT us Ned Valencia MD CHEMISTRY Final Re sult [facility] [address] [place] [address], [place] from Last 3 Months or Most Recently Relevant to Health Maintenance Insurance [employer] ATTN: [place] [address] [facility] Care Teams Professional Services Manager Relationship Specialty Start Date End Date Miguel Ángel Chapman MD [address] [place] [phone] PCP - General Family Practice 07/09/24
--- NOTE | 2025-06-30 17:35 | CRLHL7_ITS ---
For Patients: As a result of the Century Cures Act, medical imaging exams and procedure reports are released immediately into your electronic medical record. You may view this report before your referring provider. If you have questions, please contact your health care provider. INDICATION: Pain and swelling, not otherwise described. According to the technologist, the patient underwent bilateral ablation of the great saphenous veins on June 03 and June 04 with right calf vein stripping, not otherwise specified. Pain in the left lower extremity extends from the mid thigh to the proximal calf and is associated with erythema on inspection, according to the technologist. Pain in the right leg corresponds to the [id number] DVT described further below. COMPARISON: None available. TECHNIQUE: Static and compression grayscale and spectral (including color) Doppler ultrasound of the bilateral lower extremities. FINDINGS: RIGHT LOWER EXTREMITY: Deep veins: Noncompressible [id number] DVT involving 1 of 2 paired posterior tibial veins in the upper leg. According to the technologist, the patient`s pain localizes to this region. Otherwise, the imaged right common femoral, deep femoral, superficial femoral, popliteal, posterior tibial, and peroneal veins are patent and free of clot. Superficial veins: Thrombosed right great saphenous vein. Echogenic thrombus within the great saphenous vein is present at the saphenofemoral junction without extension into the common femoral vein. Extravascular findings: No significant incidental findings. LEFT LOWER EXTREMITY: Deep veins: The imaged left common femoral, deep femoral, superficial femoral, popliteal, posterior tibial, and peroneal veins are patent and free of clot. Superficial veins: Thrombosed left great saphenous vein. Clot within the ablated left great saphenous vein ends 2.0 cm from the saphenofemoral junction. Extravascular findings: No significant incidental findings. IMPRESSION: 1. RIGHT LOWER EXTREMITY: Noncompressible [id number] DVT involving 1 of 2 paired posterior tibial veins in the upper leg. According to the technologist, the patient`s pain localizes to this region. This finding was conveyed by the technologist to the ordering provider Dr. Hare. Thrombosed RIGHT great saphenous vein. Echogenic thrombus within the great saphenous vein is present at the saphenofemoral junction without extension into the common femoral vein. 2. LEFT LOWER EXTREMITY: No evidence of DVT in the left lower extremity. Thrombosed LEFT great saphenous vein. Clot within the ablated left great saphenous vein ends 2.0 cm from the saphenofemoral junction. Dictated by Ge Elise MD @ 06/30/2025 7:50:48 PM (Electronically Signed)
--- NOTE | 2025-06-30 17:39 | ED.GENADULT ---
HPI - General Adult General Chief complaint: Extremity Pain/Injury, Lower Stated complaint: Both legs swollen Time Seen by Provider: 06/30/25 17:25 Source: patient Mode of arrival: ambulatory Limitations: no limitations History of Present Illness HPI narrative: 40-year-old male presenting today with bilateral leg pain. Patient states that approximately 1 month ago he had bilateral vein stripping. He denies fevers, chills, shortness of breath or chest pain. He states that he noticed pain of the bilateral lower medial thighs about 3 days ago. He noticed the skin started to turn red And the area is very tender to touch. He complains of swelling in the area. patient denies any recent long distance traveling. Denies personal history of blood clots. States that his father had a stroke in his early 40s, unclear etiology. Patient denies tobacco use. Related Data Home Medications ?Medication ?Instructions ?Recorded ?Confirmed lamotrigine 200 mg tablet 200 mg PO QDAY 07/29/22 06/26/25 cholecalciferol (vitamin D3) 50 50 mcg PO QDAY 06/18/24 06/26/25 mcg (2,000 unit) capsule sertraline 50 mg tablet 150 mg PO QDAY 03/11/25 06/26/25 lisdexamfetamine 50 mg capsule 50 mg PO DAILY 04/24/25 06/26/25 Previous Rx's ?Medication ?Instructions ?Recorded finasteride 1 mg tablet 1 mg PO QDAY #90 tabs 06/26/25 apixaban 5 mg (74 tabs) tablets in See Rx Instructions PO .COMPLEX 06/30/25 a dose pack (Eliquis DVT-PE Treat #74 ea 30D Start) Allergies Allergy/AdvReac Type Severity Reaction Status Date / Time No Known Drug Allergies Allergy Verified 06/26/25 08:54 Review of Systems Status of ROS: Reports: 6 or more systems reviewed and unremarkable except as noted in History and below [facility] Medical History History of varicocele ?Z86.79 - Personal history of other diseases of the circulatory system (ICD-10) Depression ?F32.A - Depression, unspecified (ICD-10) Elevated cholesterol ?E78.00 - Pure hypercholesterolemia, unspecified (ICD-10) Surgical History Hx of tonsillectomy ?Z90.89 - Acquired absence of other organs (ICD-10) History of repair of anterior cruciate ligament of left knee ?Z98.890 - Other specified postprocedural states (ICD-10) History of arthroscopy of both knees ?Z98.890 - Other specified postprocedural states (ICD-10) Family History Father High blood pressure Diabetes Stroke Social History Narrative: Stays at home with children. Does not smoke. rare alcohol What is your current living situation?: I presently have a place to live Problems where you live: no known problems In the past 12 months, utilities in danger of being shut off: no In past 12 months, lack of transportation kept you from medical appts, meetings, work, or getting things needed for daily living: no In the past 12 mos, have been you worried that your food would run out before you had money to buy more?: never true In the past 12 mos, the food you bought just didn't last and you didn't have money to buy more?: never true Smoking Status: Never smoker How often does anyone, including family, friends and others, physically hurt you: never How often does anyone, including family, friends and others, insult or talk down to you: never How often does anyone, including family, friends and others, threaten you with harm: never How often does anyone, including family, friends and others, scream or curse at you: never Exam Narrative: Exam Narrative: Well-nourished well-developed patient in no acute distress. Alert and oriented. Answers questions appropriately. Mood and affect are appropriate. Thoughts are goal oriented and rational. No tangential or magical thinking noted. Patient speaks in full sentences without needing to catch His breath. HEENT: Normocephalic atraumatic. Pupils are equally round reactive to light. Extraocular muscles are intact. Conjunctivae are moist without any icterus noted. Moist mucous membranes. Cardiovascular: Heart is regular rate and rhythm S1 and S2 are present without any murmurs. Lungs: Clear to auscultation bilaterally no wheezes rhonchi or rales are appreciated. Patient takes deep breaths without any discomfort. Extremities: Bilateral lower extremities are without edema. Normal DP and PT pulses. patient has erythema and tenderness of the medial distal thigh into the medial knee, bilaterally. He has a palpable cord bilaterally. Skin: Well perfused. Const: Vital Signs, click to edit/add: Vital Signs - 24 hr 06/30/25 15:51 Temperature 96.8 F L Pulse Rate [Pulse Oximeter] 117 H Respiratory Rate 16 Blood Pressure [Ri ght Upper Arm] 110/76 Pulse Oximetry 97 Oxygen Delivery Me thod Room Air Course Course ED Course: Bilateral lower extremity ultrasounds were ordered. Imaging positive for DVT-please see attached report. Vital Signs Vital signs: Initial Vital Signs Temperature 96.8 F L 06/30/25 15:51 Temperature Source Temporal Artery Scan 06/30/25 15:51 Pulse Rate 117 H 06/30/25 15:51 Respiratory Rate 16 06/30/25 15:51 Blood Pressure 110/76 06/30/25 15:51 Blood Pressure Mean 87 06/30/25 15:51 Blood Pressure Position Sitting 06/30/25 15:51 Pulse Oximetry 97 06/30/25 15:51 Oxygen Delivery Method Room Air 06/30/25 15:51 Vital Signs Temperature 96.8 F L 06/30/25 15:51 Pulse Rate 117 H 06/30/25 15:51 Respiratory Rate 16 06/30/25 15:51 Blood Pressure 110/76 06/30/25 15:51 Pulse Oximetry 97 06/30/25 15:51 Oxygen Delivery Method Room Air 06/30/25 15:51 Temperature 96.8 F L 06/30/25 15:51 Pulse Rate 117 H 06/30/25 15:51 Respiratory Rate 16 06/30/25 15:51 Blood Pressure 110/76 06/30/25 15:51 Pulse Oximetry 97 06/30/25 15:51 Oxygen Delivery Method Room Air 06/30/25 15:51 Medical Decision Making Imaging Data Venous US: Attestation: I have reviewed the pertinent imaging results. Radiologist's impression: TECHNIQUE: Static and compression grayscale and spectral (including color) Doppler ultrasound of the bilateral lower extremities. FINDINGS: RIGHT LOWER EXTREMITY: Deep veins: Noncompressible [id number] DVT involving 1 of 2 paired posterior tibial veins in the upper leg. According to the technologist, the patient`s pain localizes to this region. Otherwise, the imaged right common femoral, deep femoral, superficial femoral, popliteal, posterior tibial, and peroneal veins are patent and free of clot. Superficial veins: Thrombosed right great saphenous vein. Echogenic thrombus within the great saphenous vein is present at the saphenofemoral junction without extension into the common femoral vein. Extravascular findings: No significant incidental findings. LEFT LOWER EXTREMITY: Deep veins: The imaged left common femoral, deep femoral, superficial femoral, popliteal, posterior tibial, and peroneal veins are patent and free of clot. Superficial veins: Thrombosed left great saphenous vein. Clot within the ablated left great saphenous vein ends 2.0 cm from the saphenofemoral junction. Extravascular findings: No significant incidental findings. IMPRESSION: 1. RIGHT LOWER EXTREMITY: Noncompressible [id number] DVT involving 1 of 2 paired posterior tibial veins in the upper leg. According to the technologist, the patient`s pain localizes to this region. This finding was conveyed by the technologist to the ordering provider Dr. Hare. Thrombosed RIGHT great saphenous vein. Echogenic thrombus within the great saphenous vein is present at the saphenofemoral junction without extension into the common femoral vein. 2. LEFT LOWER EXTREMITY: No evidence of DVT in the left lower extremity. Thrombosed LEFT great saphenous vein. Clot within the ablated left great saphenous vein ends 2.0 cm from the saphenofemoral junction. Dictated by Ge Elise MD @ 06/30/2025 7:50:48 PM Discharge Plan Discharge Clinical Impression: DVT (deep venous thrombosis) Patient Disposition: Home, Self-Care Condition: Stable Instructions: Deep Vein Thrombosis (DC) Additional Instructions: You will need to start taking a blood thinner so that the clot does not get bigger. You will need to follow-up with your primary care provider this week to update them on your condition and to make sure that you were doing well. These medications generally have to be taken for the at least 3 months so you will need refills which will come from your primary care doctor. Also recommend calling your vascular clinic tomorrow morning to let them know what is happening. You have received a dose of Eliquis tonight, you can sisal picker your prescription in the morning and take your next dose tomorrow morning. Lastly, you will be sent home with pain medication (Percocet). This is a narcotic pain medication. You should not drive any vehicles when taking this medication. This medication can cause constipation if taken for more than a couple of days. Recommend starting daily MiraLax if this is the case. Eight tablets of Percocet sent to [facility]. Prescriptions: New Ame DVT-PE Treat 30D Start 5 mg (74 tabs) tablets,dose pack See Rx Instructions .ROUTE .COMPLEX Qty: 74 0RF Rx Instructions: orally per package directions No Action cholecalciferol (vitamin D3) 50 mcg (2,000 unit) capsule 50 mcg PO QDAY finasteride 1 mg tablet 1 mg PO QDAY Qty: 90 3RF lisdexamfetamine 50 mg capsule 50 mg PO DAILY lamotrigine 200 mg tablet 200 mg PO QDAY sertraline 50 mg tablet 150 mg PO QDAY Follow Up/Referrals: Miguel Ángel Chapman MD [Primary Care Provider, Family Practice] Stand Alone Forms: [facility] Info Instructions
[2025-06-30 20:00] VITALS: BP 127/75; PULSE 75; RESP 18; O2SAT 98
[2025-06-30] MEDS: APIXABAN 5 MG TABLET 10 MG PO (20:30)
== END 2025-06-30 20:51 | disposition home or self-care (01) ==
PROVIDERS: Emergency Provider Family Medicine; PCP Family Medicine
DX: I82.403 Acute embolism and thrombosis of unspecified deep veins of lower extremity, bilateral (principal)
CPT/HCPCS: 93970; 99284; A9270